=== PATIENT | female | born 1985 ===

== ENCOUNTER 2020-12-14 11:13 | Day surgery (SDC) | payer OTHER | END 2020-12-14 17:00 | disposition home or self-care (01) | LOC: AMB-ENDOS 11:13 | PROVIDERS: ATTEND Colon & Rectal Surgery | DX: D12.3 Benign neoplasm of transverse colon (principal); K62.82 Dysplasia of anus; K52.89 Other specified noninfective gastroenteritis and colitis; K64.8 Other hemorrhoids; Z20.822 Contact with and (suspected) exposure to COVID-19; Z12.11 Encounter for screening for malignant neoplasm of colon ==

== ENCOUNTER 2022-03-20 08:15 | Inpatient (IN) | payer OTHER ==
[~2022-03-20] VITALS: Ht 160 cm; Wt 68.0 kg
== END 2022-03-27 13:42 | disposition home or self-care (01) | DRG 734 ==
LOC: O/R 03-22 06:00 → SURG 03-22 07:00 → OB/GYN 03-23 12:18
PROVIDERS: Colon & Rectal Surgery; ADMIT Obstetrics & Gynecology Gynecologic Oncology; ATTEND Obstetrics & Gynecology Gynecologic Oncology
PROC: 0UT74ZZ Resection of Bilateral Fallopian Tubes, Percutaneous Endoscopic Approach (ICD-10-PCS; 2022-03-22)
PROC: 0UT24ZZ Resection of Bilateral Ovaries, Percutaneous Endoscopic Approach (ICD-10-PCS; 2022-03-22)
PROC: 0TN74ZZ Release Left Ureter, Percutaneous Endoscopic Approach (ICD-10-PCS; 2022-03-22)
PROC: 0TN64ZZ Release Right Ureter, Percutaneous Endoscopic Approach (ICD-10-PCS; 2022-03-22)
PROC: 0DNH4ZZ Release Cecum, Percutaneous Endoscopic Approach (ICD-10-PCS; 2022-03-22)
PROC: 0WBH4ZZ Excision of Retroperitoneum, Percutaneous Endoscopic Approach (ICD-10-PCS; 2022-03-22)
PROC: 0DTF4ZZ Resection of Right Large Intestine, Percutaneous Endoscopic Approach (ICD-10-PCS; 2022-03-22)
PROC: 07TC4ZZ Resection of Pelvis Lymphatic, Percutaneous Endoscopic Approach (ICD-10-PCS; principal; 2022-03-22 07:00)
PROC: 0UT94ZZ Resection of Uterus, Percutaneous Endoscopic Approach (ICD-10-PCS; 2022-03-22 07:00)
DX: N80.0 Endometriosis of uterus (principal); K65.8 Other peritonitis; D62 Acute posthemorrhagic anemia; N72 Inflammatory disease of cervix uteri; N80.2 Endometriosis of fallopian tube; N80.5 Endometriosis of intestine; N80.1 Endometriosis of ovary; Z20.822 Contact with and (suspected) exposure to COVID-19